=== PATIENT | female | born 1995 | race Caucasian/White ===

== ENCOUNTER 2018-06-11 13:16 | Emergency (ER) | payer MEDICAID ==
[~2018-06-11] VITALS: Ht 152.4 cm; Wt 46.3 kg
[2018-06-11 13:38] VITALS: BP 130/76
[2018-06-11 14:08] LABS: APPEARANCE,URINE Cloudy (CLEAR); BILIRUBIN,URINE SMALL (NEGATIVE); BLOOD, URINE Large Ery/uL (NEGATIVE); KETONES,URINE 40 (NEGATIVE); LEUKOCYTE ESTERASE ,URINE Small (NEGATIVE); NITRITE, URINE Positive (NEGATIVE); PROTEIN,URINE >=300 mg/dl (NEGATIVE); UGLUCOSE Negative (NEGATIVE); UROBILINOGEN,URINE 0.2 EU/dL (0.2)
[2018-06-11 14:12] LABS: COLOR,URINE DARK YELLOW (YELLOW)
[2018-06-11 14:18] LABS: BACTERIA,URINE Moderate /HPF (None Seen); WBC,URINE TOO NUMEROUS TO COUN /HPF (0-3)
[2018-06-11 14:19] LABS: SQUAMOUS EPITHELIAL CELL,UR Few /HPF (None Seen)
== END 2018-06-11 14:56 | disposition home or self-care (01) ==
LOC: ER 13:21
DX: N39.0 Urinary tract infection, site not specified (principal); F32.9 Major depressive disorder, single episode, unspecified; F41.9 Anxiety disorder, unspecified; F42.8 Other obsessive-compulsive disorder; Z60.2 Problems related to living alone
CPT/HCPCS: 81000-TC; 84703-TC; 87086-TC; 87186-TC

== ENCOUNTER 2018-08-31 08:40 | Emergency (ER) | payer MEDICAID ==
[~2018-08-31] VITALS: Ht 167.6 cm; Wt 56.7 kg
[2018-08-31 08:43] VITALS: BP 104/55
--- NOTE | 2018-08-31 09:39 | NUR ---
pt BIBS C/O COUGH,
--- NOTE | 2018-08-31 09:40 | NUR ---
Patient discharged to home in stable condition. Written and verbal after care instructions given. Patient verbalizes understanding of instruction.
[2018-08-31 10:03] LABS: MONOTEST NEGATIVE (NEGATIVE)
== END 2018-08-31 09:39 | disposition home or self-care (01) ==
LOC: ER 08:40
DX: J02.9 Acute pharyngitis, unspecified (principal); F41.9 Anxiety disorder, unspecified; F32.9 Major depressive disorder, single episode, unspecified; F42.8 Other obsessive-compulsive disorder; Z60.2 Problems related to living alone
CPT/HCPCS: 36415; 86308-TC; 86403-TC; 87070-TC

== ENCOUNTER 2019-01-22 23:42 | Emergency (ER) | payer MEDICAID | END 2019-01-23 06:12 | disposition home or self-care (01) | DX: R45.851 Suicidal ideations (principal); F41.9 Anxiety disorder, unspecified; F43.10 Post-traumatic stress disorder, unspecified; F32.9 Major depressive disorder, single episode, unspecified; F42.8 Other obsessive-compulsive disorder | CPT/HCPCS: 36415; 80048; 80076; 80305; 80307; 80329; 81001; 84703; 85025; 99284; G0480 ==

== ENCOUNTER 2019-05-29 22:03 | Emergency (ER) | payer MEDICAID ==
[~2019-05-29] VITALS: Ht 167.6 cm; Wt 50.8 kg
[2019-05-29 22:07] VITALS: BP 112/78
--- NOTE | 2019-05-29 22:15 | NUR ---
URINE COLLECTED AND SENT TO LAB
[2019-05-29 22:19] LABS: APPEARANCE,URINE Clear (CLEAR); BILIRUBIN,URINE Negative (NEGATIVE); BLOOD, URINE Negative Ery/uL (NEGATIVE); COLOR,URINE Yellow (YELLOW); KETONES,URINE Trace (NEGATIVE); LEUKOCYTE ESTERASE ,URINE Trace (NEGATIVE); NITRITE, URINE Negative (NEGATIVE); PROTEIN,URINE Trace mg/dl (NEGATIVE); UGLUCOSE Negative (NEGATIVE)
[2019-05-29] MEDS ORDERED: SULFAMETH/TRIMETH 800/160 MG 1 UDTAB TABLET ONE (22:29)
[2019-05-29] MEDS ORDERED: SULFAMETH/TRIMETH 800/160 MG 1 UDTAB TABLET PO ONE (22:30)
[2019-05-29 23:07] LABS: BACTERIA,URINE Few /HPF (None Seen); RBC,URINE 0-2 /HPF (0-2); SQUAMOUS EPITHELIAL CELL,UR Moderate /HPF (None Seen)
== END 2019-05-29 23:02 | disposition home or self-care (01) ==
LOC: ER 22:56
DX: N39.0 Urinary tract infection, site not specified (principal); F43.10 Post-traumatic stress disorder, unspecified; F41.0 Panic disorder [episodic paroxysmal anxiety]; F32.9 Major depressive disorder, single episode, unspecified; F42.8 Other obsessive-compulsive disorder
CPT/HCPCS: 81000-TC